=== PATIENT | female | born 1990 | race Two or more races ===

== ENCOUNTER 2017-01-14 17:22 | Observation (INO) | payer BC ==
[2017-01-14 17:34] VITALS: RESP 16; TEMP 98.4; O2SAT 100
[2017-01-14] MEDS ORDERED: Sodium Chloride 0.9% 1,000 ML IV STA ×2 (17:49→19:04)
--- NOTE | 2017-01-14 17:56 | ED PDOC ---
HPI: Psych/Substance Abuse Time Seen by Provider: 01/14/17 17:39 Chief Complaint (Nursing): Anxiety History Per: Patient (states that she has been feeling shaky with numbness and tingling of both arms and inability to focus at work. She states that she shared a bottle of wine with a friend last night (she normally usually drinks a glass of wine at a time), she then another drink followed by a martini before she went home. She woke up feeling a bit hung over but went to work. She had some fluids and fried foods and a piece of edible marijuana from [place]. After that she began to feel the difficulty in focusing and the sensations of numbness and tingling.), Other Past Medical History Reviewed: Historical Data, Nursing Documentation, Vital Signs Vital Signs: Last Vital Signs Temp 98.4 F 01/14/17 17:30 Pulse 90 01/14/17 17:30 Resp 16 01/14/17 17:30 BP 130/76 01/14/17 17:30 Pulse Ox 100 01/14/17 17:30 - Medical History PMH: Anxiety (but never on meds), Asthma - Surgical History Surgical History: No Surg Hx - Family History Family History: States: No Known Family Hx - Living Arrangements Living Arrangements: With Friends/Others - Social History Current smoker - smoking cessation education provided: No Alcohol: Social Drugs: Cannabis - Home Medications Home Medications: Ambulatory Orders Medication Instructions Recorded Albuterol HFA [Ventolin HFA 90 PRN 04/27/16 mcg/actuation (8 g)] - Allergies Allergies/Adverse Reactions: Allergies Allergy/AdvReac Type Severity Reaction Status Date / Time No Known Allergies Allergy Verified 04/27/16 08:21 Review of Systems ROS Statement: Except As Marked, All Systems Reviewed And Found Negative Gastrointestinal: Negative for: Nausea, Vomiting Genitourinary Female: Negative for: Dysuria Neurological: Positive for: Numbness, Dizziness Physical Exam - Reviewed Nursing Documentation Reviewed: Yes Vital Signs Reviewed: Yes - Physical Exam Appears: Positive for: Well, Non-toxic, Uncomfortable Head Exam: Positive for: ATRAUMATIC, NORMAL INSPECTION, NORMOCEPHALIC Skin: Positive for: Normal Color, Warm, DRY Eye Exam: Positive for: Normal appearance, EOMI, PERRL ENT: Positive for: Normal ENT Inspection Neck: Positive for: Normal, Painless ROM Cardiovascular/Chest: Positive for: Regular Rate, Rhythm Respiratory: Positive for: CNT, Normal Breath Sounds Gastrointestinal/Abdominal: Positive for: Normal Exam, Bowel Sounds, Soft Back: Positive for: Normal Inspection Extremity: Positive for: Normal ROM Neurologic/Psych: Positive for: Alert, Oriented, Motor/Sensory Deficits ( generalized involuntary movements of the upper and lower extremities ), Mood/ Affect (flat) - Laboratory Results Result Diagrams: 01/14/17 18:04 01/14/17 18:04 - ECG O2 Sat by Pulse Oximetry: 100 Medical Decision Making Medical Decision Makin.50p - patient feeling much better after 2 L of IV fluids. No longer fidgety. Tremors resolved. Patient ready for discharge. ED OBSERVATION Discharge: Yes Date of observation admission: 01/14/17 Time of observation admission: 19:25 - Observation admission statement Patient is being placed in observation because:: involuntary shaking. Disposition - Clinical Impression Clinical Impression: Anxiety related tremor - Patient ED Disposition Is Patient to be Admitted: No Doctor Will See Patient In The: Office Counseled Patient/Family Regarding: Diagnosis, Need For Followup - Disposition Disposition: Routine/Home Disposition Time: 21:56 Condition: IMPROVED - POA Present On Arrival: None
[2017-01-14 18:06] LABS: BASO % 0.3 % (0.0-2.0); EOS # 0.1 K/uL (0.0-0.7); HEMATOCRIT 39.6 % (34.0-47.0); LYMPH % 41.7 % (20.0-40.0); MEAN CELL VOLUME 95.3 fl (81.0-99.0); MEAN CORPUSCULAR HEMOGLOBIN 32.7 pg (27.0-31.0); MEAN CORPUSCULAR HGB CONC 34.3 g/dL (33.0-37.0); MEAN PLATELET VOLUME 7.7 fl (7.2-11.7); MONO # 0.5 K/uL (0.0-0.8); MONO % 5.6 % (0.0-10.0); NEUT # 4.9 K/uL (1.8-7.0); NEUT % 51.4 % (50.0-75.0); RED CELL DISTRIBUTION WIDTH 12.8 % (11.5-14.5); WHITE BLOOD COUNT 9.5 K/uL (4.8-10.8)
[2017-01-14 18:19] LABS: ALB/GLOB RATIO 1.5 (1.0-2.1); ALCOHOL SERUM < 10 mg/dl (0-10); ALKALINE PHOSPHATASE 49 U/L (38-126); ALT/SGPT 36 U/L (9-52); AST/SGOT 23 U/L (14-36); BILIRUBIN,TOTAL 0.9 mg/dl (0.2-1.3); BLOOD UREA NITROGEN 19 mg/dl (7-17); CALCIUM 9.3 mg/dL (8.4-10.2); CARBON DIOXIDE 27 mmol/L (22-30); CHLORIDE 102 mmol/L (98-107); GFR AFRICAN-AMERICAN > 60; GLUCOSE,RANDOM 105 mg/dL (65-105); POTASSIUM 3.6 MMOL/L (3.6-5.0); SODIUM 140 mmol/l (132-148); TOTAL PROTEIN 7.6 G/DL (6.3-8.2)
[2017-01-14 20:37] LABS: RBC URINE 2 /hpf (0-3); URINE BACTERIA RARE (<OCC); URINE BILIRUBIN NEGATIVE (NEGATIVE); URINE BLOOD NEGATIVE (NEGATIVE); URINE COLOR YELLOW (YELLOW); URINE GLUCOSE (UA) NEG (Normal); URINE KETONE NEGATIVE (NEGATIVE); URINE LEUKOCYTE ESTERASE LARGE Leu/uL (Negative); URINE PROTEIN 30 mg/dL (NEGATIVE); URINE UROBILINOGEN 0.2-1.0 mg/dL (0.2-1.0)
[2017-01-14 20:39] LABS: WBC URINE 25 /hpf (0-5)
[2017-01-14 22:24] VITALS: BP 98/66; PULSE 71
== END 2017-01-14 22:03 | disposition home or self-care (01) ==
LOC: H.ER 17:22 → H.EROBSV 19:30
PROVIDERS: ADMIT Emergency Medicine; ATTEND Emergency Medicine
DX: F41.9 Anxiety disorder, unspecified (principal); R25.1 Tremor, unspecified; J45.909 Unspecified asthma, uncomplicated
CPT/HCPCS: 80053; 81003; 81025; 82948; 85025; 87086; 96360; 96361; 99282; G0378; G0480; J7040